=== PATIENT | male | born 1965 | race Caucasian/White ===

== ENCOUNTER 2019-10-01 16:32 | Inpatient (IN) | payer BC, SELFPAY ==
[~2019-10-01 16:32] MED LIST: Iopamidol-370 76% 500 ML 1 ML ONE
[2019-10-01] MEDS ORDERED: Adacel (T-DAP) 0.5 ML SYRINGE ONE (16:50)
[2019-10-01] MEDS ORDERED: Morphine 4 MG/ML VIAL ONE ×2 (16:50→18:13)
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
[2019-10-01 17:50] LABS: #Basophils 0.1 thou/uL (0.0-0.2); #Eosinphils 0.1 thou/uL (0.0-0.7); #Lymphocytes 1.7 thou/uL (1.20-3.40); #Monocytes 1.1 thou/uL (0.11-0.59); #Neutrophils 10.4 thou/uL (1.40-6.50); %Basophils 0.4 % (0.0-1.0); %Eosinophils 0.6 % (0.0-10.0); %Lymphocytes 12.8 % (21.0-51.0); %Monocytes 8.2 % (0.0-10.0); Hemoglobin 16.5 g/dL (14.0-18.0); Mean Corpuscular HGB CONC 33.4 g/dL (32.0-36.0); Mean Corpuscular Hemoglobin 33.1 pg (27.0-31.0); Mean Corpuscular Volume 99.3 fL (78.0-98.0); Mean Platelet Volume 8.9 fL (7.4-10.4); Platelet Count 194 thou/uL (130-400); RBC Distribution Width 12.3 % (11.5-14.5); Red Blood Cell (RBC) Count 4.99 mill/uL (4.70-6.10); White Blood Cell (WBC) Count 13.3 thou/uL (4.8-10.8)
[2019-10-01 18:09] LABS: Anion Gap 12 mmol/L (10-20); BUN (Urea Nitrogen) 10 mg/dL (8.4-25.7); Calc. Creatinine Clearance 0 mL/min (70-130); Calcium 8.9 mg/dL (7.8-10.44); Carbon Dioxide 26 mmol/L (22-29); Chloride 103 mmol/L (98-107); Estimated GFR-MDRD 80; Glucose 119 mg/dL (70-105); Potassium 4.6 mmol/L (3.5-5.1); Sodium 136 mmol/L (136-145)
[2019-10-01] MEDS ORDERED: Ketorolac Tromethamine 30 MG/ML VIAL ONE (18:13)
[2019-10-01] MEDS ORDERED: Dextrose 50% Abboject 50 ML SYRINGE SLOW IVP PRN (18:39)
[2019-10-01] MEDS ORDERED: hydrALAZINE 20 MG/ML VIAL SLOW IVP PRN ×2 (18:39)
[2019-10-01] MEDS ORDERED: Dextrose 5% in Water 1,000 ML IV PRN (18:39)
[2019-10-01] MEDS ORDERED: Ondansetron ODT 4 MG TAB PO PRN (18:39)
[2019-10-01] MEDS ORDERED: HumaLOG 300 UNITS/3 ML VIAL SC PRN (18:39)
[2019-10-01] MEDS ORDERED: Rib Fracture Protocol PO SCH (18:45)
[2019-10-01] MEDS: Cyclobenzaprine 10 MG TAB PO PRN (20:56)
[2019-10-01] MEDS: Famotidine/PF 20 mg/2ml Vial SLOW IVP SCH (20:57)
[2019-10-01] MEDS: Senokot S 8.6-50 MG TAB PO SCH (20:57)
[2019-10-01] MEDS: Gabapentin 300 MG CAP PO SCH (21:14)
[2019-10-01 21:56] VITALS: BMI 32.5
[2019-10-01] MEDS: Ibuprofen 800 MG TAB PO SCH (22:50)
[2019-10-01] MEDS: Acetaminophen 500 MG TAB PO SCH (22:50)
[2019-10-01] MEDS: traMADol HCl 50 MG TAB PO SCH (22:51)
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
[2019-10-02] MEDS: Ibuprofen 800 MG TAB PO SCH ×3 (05:25→13:59)
[2019-10-02] MEDS: Acetaminophen 500 MG TAB PO SCH ×2 (05:25→11:44)
[2019-10-02] MEDS: Cyclobenzaprine 10 MG TAB PO PRN (05:25)
[2019-10-02] MEDS: traMADol HCl 50 MG TAB PO SCH (05:25)
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
[2019-10-02] MEDS: Senokot S 8.6-50 MG TAB PO SCH (08:25)
[2019-10-02] MEDS: Gabapentin 300 MG CAP PO SCH ×2 (08:26→13:59)
[2019-10-02] MEDS: Famotidine/PF 20 mg/2ml Vial SLOW IVP SCH (08:26)
[2019-10-02] MEDS ORDERED: Polyethylene Glycol 3350 17 GM Packet PO SCH (09:00)
[2019-10-02 13:43] VITALS: BP 135/81; TEMP 98.2
[2019-10-02] MEDS ORDERED: traMADol HCl 50 MG TAB PO SCH (15:00)
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
== END 2019-10-02 14:25 | disposition home or self-care (01) | DRG 184 ==
LOC: ERS 16:32 → SURG B 18:39
PROVIDERS: ADMIT Specialist; ATTEND Specialist
DX: S22.41XA Multiple fractures of ribs, right side, initial encounter for closed fracture (principal); J90 Pleural effusion, not elsewhere classified; T14.8XXA Other injury of unspecified body region, initial encounter; V89.2XXA Person injured in unspecified motor-vehicle accident, traffic, initial encounter; I10 Essential (primary) hypertension; F17.210 Nicotine dependence, cigarettes, uncomplicated
CPT/HCPCS: 36415; 71045; 71260; 72170; 74177; 80048; 85025; 90471; 90715; 94640; 96374; 96375; 96376; G0390; J1885; J2270; J7620; Q9967; S0028